=== PATIENT | female | born 1970 | race Caucasian/White ===

== ENCOUNTER 2023-07-13 22:21 | Inpatient (IN) | payer BC ==
--- NOTE | 2023-07-13 22:49 | ED ---
Arrhythmia/Palpitations HPI - General Chief Complaint: Arrhythmia/Palpitations Stated Complaint: Afib RVR Time Seen by Provider: 07/13/23 22:26 Source: patient, EMS Mode of arrival: EMS Limitations: no limitations - History of Present Illness Initial Comments: This patient is a 53-year-old woman who arrives by ambulance to have evaluation for "fluttering" feeling in her chest. The patient states she had been out having dinner tonight after celebrating Narendra's Day. She states she did drink more than she usually does. She noticed that she was feeling a fluttering in her chest. The patient's friend used an Apple Watch that said she was pr obably in atrial fibrillation. The patient states she has not had any history of this. She has no cardiac history. Patient states she does have history of hypothyroidism taking thyroid supplement. She had not been having symptoms prior to 2 hours ago. Patient denies pain, dyspnea, nausea vomiting, diaphoresis or syncope. MD Complaint: palpitations -: hour(s) Context: occurred during rest Associated Symptoms: denies other symptoms Treatments Prior to Arrival: vagal maneuvers - Related Data Home Medications Medication Instructions Recorded Confirmed Cholecalciferol [Vitamin D3 (125 125 mcg PO DAILY 07/14/23 07/14/23 Mcg = 5000 Iu)] Multivitamins, Thera [Multivitamin 1 tab PO DAILY 07/14/23 07/14/23 (formulary)] [place]-3/Dha/Epa/Fish Oil [Fish Oil 1 cap PO DAILY 07/14/23 07/14/23 1,000 mg Softgel] Previous Rx's Medication Instructions Recorded Thyroid,Pork [Nursing Technician Thyroid 120] 120 mg PO DAILY #30 tablet 07/14/23 Thyroid,Pork [Nursing Technician Thyroid] 30 mg PO DAILY #30 tablet 07/14/23 Allergies Allergy/AdvReac Type Severity Reaction Status Date / Time gabapentin [From Neurontin] Allergy Rash/Hives Verified 07/13/23 22:32 zpack AdvReac Nausea & Uncoded 07/13/23 22:32 Vomiting Review of Systems ROS Statement: Those systems with pertinent positive or pertinent negative responses have been documented in the HPI. ROS Other: All systems not noted in ROS Statement are negative. Constitutional: Denies: fever, chills Eyes: Denies: vision change Respiratory: Denies: cough, dyspnea Cardiovascular: Reports: palpitations. Denies: chest pain, orthopnea, edema, syncope Gastrointestinal: Denies: abdominal pain, nausea, vomiting, diarrhea Genitourinary: Denies: dysuria, hematuria Musculoskeletal: Denies: back pain Skin: Denies: rash Neurological: Denies: headache, weakness, numbness Past Medical History - Past Family History Father Family Medical History: Diabetes Mellitus Mother Family Medical History: COPD, Osteoarthritis (OA) General Exam General appearance: alert, in no apparent distress Head exam: Present: atraumatic, normocephalic Eye exam: Present: normal appearance. Absent: scleral icterus, conjunctival injection ENT exam: Present: normal oropharynx Neck exam: Present: normal inspection Respiratory exam: Present: normal lung sounds bilaterally. Absent: respiratory distress, wheezes, rales, rhonchi, stridor, accessory muscle use Cardiovascular Exam: Present: tachycardia, irregular rhythm, normal heart sounds. Absent: systolic murmur, diastolic murmur, rubs, gallop GI/Abdominal exam: Present: soft. Absent: distended, tenderness, guarding, rebound, rigid, mass Extremities exam: Present: normal inspection, normal capillary refill. Absent: pedal edema, calf tenderness Back exam: Present: normal inspection. Absent: CVA tenderness (R), CVA te nderness (L) Neurological exam: Present: alert Skin exam: Present: warm, dry, intact, normal color. Absent: rash Course Vital Signs 07/13/23 07/13/23 07/14/23 22:23 23:30 00:45 Temperature 98.5 F Pulse Rate 142 H 131 H 144 H Respiratory 18 18 18 Rate Blood Pressure 102/72 119/80 109/69 O2 Sat by Pulse 98 96 96 Oximetry 07/14/23 02:02 Temperature Pulse Rate 118 H Respiratory 18 Rate Blood Pressure 109/69 O2 Sat by Pulse 94 L Oximetry EKG Findings - EKG Results: EKG: normal axis EKG shows: tachycardia (Rate 144 bpm) - Dysrhythmias: Supraventricular dysrhythmia: atrial fibrillation - Blocks, Thida, Hypertrophy, ST Abn: QRS axis and voltage: low voltage (<0.5 MV total QRS and <1.0 MV in each precordial lead) Medical Decision Making - Medical Decision Making The patient had chest x-ray that I interpreted as negative for acute infiltrate, pneumothorax, congestive heart failure Was pt. sent in by a medical professional or institution (JACK Scanlon, RESEARCH COMPLIANCE SPECIALIST, urgent care, hospital, or fdc...) When possible be specific @ -[No] Did you speak to anyone other than the patient for history (EMS, parent, family, police, friend...)? What history was obtained from this source @ -[Patient's friend did contribute to history Did you review nursing and triage notes (agree or disagree)? Why? @ -[I reviewed and agree with nursing and triage notes] Were old charts reviewed (outside hosp., previous admission, EMS record, old EKG, old radiological studies, urgent care reports/EKG's, fdc records)? Report findings @ -[No old charts were reviewed] Differential Diagnosis (chest pain, altered mental status, abdominal pain women, abdominal pain men, vaginal bleeding, weakness, fever, dyspnea, syncope, headache, dizziness, GI bleed, back pain, seizure, CVA, palpatations, mental health, musculoskeletal)? @ -[Differential Palpitations Ventricular arrhythmias, atrial arrhythmias, myocardial infarction, anemia, thy rotoxicosis, electrolyte imbalance, hypokalemia, pulmonary embolism, pulmonary disease, drugs, alcohol, anxiety, stress.... This is not meant to be an all-inclusive list. EKG interpreted by me (3pts min.). @ -[I interpreted as above] X-rays interpreted by me (1pt min.). @ -[I interpreted as above CT interpreted by me (1pt min.). @ -[None done] U/S interpreted by me (1pt. min.). @ -[None done] What testing was considered but not performed or refused? (CT, X-rays, U/S, labs)? Why? @ -[None] What meds were considered but not given or refused? Why? @ -[None] Did you discuss the management of the patient with other professionals (professionals i.e. JACK Scanlon, RESEARCH COMPLIANCE SPECIALIST, lab, RT, psych nurse, social secretary, rn documentation, teacher, traffic officer, briefcase sewer)? Give summary @ -[No] Was smoking cessation discussed for >3mins.? @ -[No] Was critical care preformed (if so, how long)? @ -[S, 35 minutes Were there social determinants of health that impacted care today? How? (Homelessness, low income, unemployed, alcoholism, drug addiction, transportation, low edu. Level, literacy, decrease access to med. care, penitentiary, rehab)? @ -[No] Was there de-escalation of care discussed even if they declined (Discuss DNR or withdrawal of care, Hospice)? DNR status @ -[No] What co-morbidities impacted this encounter? (DM, HTN, Smoking, COPD, CAD, Cancer, CVA, ARF, Chemo, Hep., AIDS, mental health diagnosis, sleep apnea, morbid obesity)? @ -[None] Was patient admitted / discharged? Hospital course, mention meds given and route, prescriptions, significant lab abnormalities, going to OR and other pertinent info. @ -[Patient is a 53-year-old woman presenting with palpitations and found to be in new onset of atrial fibrillation with a rapid ventricular rate. The patient is started on fluids and Cardizem. After period of time she remains in atrial fibrillation though the rate has come down somewhat. Patient be admitted for further treatment and cardiology consultation. Undiagnosed new problem with uncertain prognosis? @ -[No] Drug Therapy requiring intensive monitoring for toxicity (Heparin, Nitro, Insulin, Cardizem)? @ -[Cardizem Were any procedures done? @ -[No] Diagnosis/symptom? @ -[New onset atrial fibrillation, with ventricular rapid rate Acute, or Chronic, or Acute on Chronic? @ -[Acute Uncomplicated (without systemic symptoms) or Complicated (systemic symptoms)? @ -[Uncomplicated Side effects of treatment? @ -[No] Exacerbation, Progression, or Severe Exacerbation? @ -[No] Poses a threat to life or bodily function? How? (Chest pain, USA, ID, pneumonia, PE, COPD, DKA, ARF, appy, cholecystitis, CVA, Diverticulitis, Homicidal, Suicidal, threat to staff... and all critical care pts) @ -[No] - Lab Data Result diagrams: 07/13/23 22:49 07/13/23 22:49 Lab Results 07/13/23 07/13/23 07/13/23 Range/Units 22:49 22:49 22:49 WBC 5.8 (3.8-10.6) k/uL RBC 5.14 (3.80-5.40) m/uL Hgb 14.2 (11.4-16.0) gm/dL Hct 43.0 (34.0-46.0) % MCV 83.6 (80.0-100.0) fL MCH 27.7 (25.0-35.0) pg MCHC 33.1 (31.0-37.0) g/dL RDW 12.2 (11.5-15.5) % Plt Count 191 (150-450) k/uL MPV 6.9 Neutrophils % 41 % Lymphocytes % 48 % Monocytes % 5 % Eosinophils % 2 % Basophils % 1 % Neutrophils # 2.4 (1.3-7.7) k/uL Lymphocytes # 2.8 (1.0-4.8) k/uL Monocytes # 0.3 (0-1.0) k/uL Eosinophils # 0.1 (0-0.7) k/uL Basophils # 0.1 (0-0.2) k/uL Sodium 142 (137-145) mmol/L Potassium 3.7 (3.5-5.1) mmol/L Chloride 109 H (98-107) mmol/L Carbon Dioxide 22 (22-30) mmol/L Anion Gap 11 mmol/L BUN 10 (7-17) mg/dL Creatinine 0.72 (0.52-1.04) mg/dL Est GFR (CKD-EPI)AfAm >90 (>60 ml/min/1.73 sqM) Est GFR (CKD-EPI)NonAf >90 (>60 ml/min/1.73 sqM) Glucose 96 (74-99) mg/dL Calcium 9.1 (8.4-10.2) mg/dL Magnesium 1.7 (1.6-2.3) mg/dL Total Bilirubin 0.3 (0.2-1.3) mg/dL AST 25 (14-36) U/L ALT 20 (4-34) U/L Alkaline Phosphatase 92 (38-126) U/L Troponin I <0.012 (0.000-0.034) ng/mL Total Protein 6.9 (6.3-8.2) g/dL Albumin 4.5 (3.5-5.0) g/dL TSH <0.015 L (0.465-4.680) mIU/L Critical Care Time Critical Care Time: Yes (35 minutes) Disposition Clinical Impression: Atrial fibrillation with rapid ventricular response Disposition: ADMITTED IP TO THIS HOSP Condition: Stable
[2023-07-13] MEDS: SODIUM CHLORIDE 0.9% 1,000 ML IV STA ×2 (22:50→22:59)
[2023-07-13] MEDS: DILTIAZEM 125 MG in SODIUM CHLORIDE 0.9% 100 ML IV SCH (22:52)
[2023-07-13] MEDS: DILTIAZEM DRIP BOLUS FROM BAG 1 MG SOLN IV ONE ×2 (22:56→23:44)
[2023-07-13] MEDS: ASPIRIN 81 MG PO STA (22:58)
[2023-07-13 23:00] LABS: Basophils # (A) 0.1 k/uL (0-0.2); Basophils % (A) 1 %; Eosinophils # (A) 0.1 k/uL (0-0.7); Eosinophils % (A) 2 %; HGB 14.2 gm/dL (11.4-16.0); Lymphocytes # (A) 2.8 k/uL (1.0-4.8); Lymphocytes % (A) 48 %; MCH 27.7 pg (25.0-35.0); MCHC 33.1 g/dL (31.0-37.0); MCV 83.6 fL (80.0-100.0); Mean Platelet Volume 6.9; Monocytes # (A) 0.3 k/uL (0-1.0); Monocytes % (A) 5 %; Neutrophils # (A) 2.4 k/uL (1.3-7.7); Neutrophils % (A) 41 %; Platelet Count 191 k/uL (150-450); RBC 5.14 m/uL (3.80-5.40); RDW 12.2 % (11.5-15.5); WBC 5.8 k/uL (3.8-10.6)
[2023-07-13 23:08] LABS: ALT 20 U/L (4-34); AST 25 U/L (14-36); African American GFR (CKD) >90 (>60 ml/min/1.73 sqM); Albumin 4.5 g/dL (3.5-5.0); Alkaline Phosphatase 92 U/L (38-126); Anion Gap 11 mmol/L; Blood Urea Nitrogen 10 mg/dL (7-17); Calcium 9.1 mg/dL (8.4-10.2); Carbon Dioxide 22 mmol/L (22-30); Chloride 109 mmol/L (98-107); Glucose 96 mg/dL (74-99); Magnesium 1.7 mg/dL (1.6-2.3); Non-African American GFR(CKD) >90 (>60 ml/min/1.73 sqM); Potassium 3.7 mmol/L (3.5-5.1); Sodium 142 mmol/L (137-145); Total Bilirubin 0.3 mg/dL (0.2-1.3); Total Protein 6.9 g/dL (6.3-8.2)
[2023-07-13] MEDS: SODIUM CHLORIDE 0.9% 500 ML 500 ML IV STA (23:44)
[2023-07-14] MEDS: LORazepam 2 MG/ML INJ IV STA (00:58)
[2023-07-14] MEDS ORDERED: NITROGLYCERIN SL TABS 0.4 MG TAB SUBLINGUAL PRN (01:39)
[2023-07-14] MEDS: DILTIAZEM DRIP BOLUS FROM BAG 1 MG SOLN IV ONE (01:43)
--- NOTE | 2023-07-14 02:02 | XR ---
EXAM: XR Chest, 2 Views CLINICAL HISTORY: ITS.REASON XR Reason: dysrhythmia TECHNIQUE: Frontal and lateral views of the chest. COMPARISON: No relevant prior studies available. FINDINGS: Lungs: No consolidation or mass. Pleural space: No effusion. Heart: No cardiomegaly. Bones/joints: No acute findings. IMPRESSION: No acute cardiopulmonary process.
[2023-07-14] MEDS: ENOXAPARIN 80 MG/0.8 ML SYRINGE SQ SCH (02:25)
[2023-07-14 07:49] VITALS: TEMP 98.3
--- NOTE | 2023-07-14 10:07 | P.CRDCN ---
History of Present Illness Consult date: 07/14/23 History of present illness: History of Present Illness: The patient is a 53-year-old female with no prior cardiac history who presented yesterday with symptoms of palpitations. The patient is visiting from [facility], had more alcohol intake than usual yesterday and then felt palpitations not associated with dizziness, chest discomfort or significant dyspnea. She borr owed the Apple Watch from her friend and was in atrial fibrillation. She is back in sinus mechanism at this time. She has occasional palpitations on and off at home that are related to her history of thyroid disease. She is active physically without exertional chest discomfort, dyspnea or palpitations. She has no PND, orthopnea or peripheral edema. She continues to be in sinus mechanism. Her troponin is normal. Her [id number] score is 1 Medications: Synthroid and weekly injection for weight loss by her PCP [facility] Review of Systems: Respiratory: No history of asthma, bronchitis or recent cough. GI: No nausea or vomiting . No history of peptic ulcer disease. No recent GI bleed. : No hematuria or dysuria. Nervous System: No stroke or seizure. Physical Examination: 53-year-old female, alert oriented no apparent distress,Blood pressure 105/60, Heart rate 89 Head: Normocephalic. Eyes: Sclerae nonicteric. Neck: Good carotid upstroke, no bruit, no jugular venous distention. Lungs: Clear to auscultation. Heart: Regular rate and rhythm, S1-S2, no S3, no rub. No murmur. Abdomen: Soft nontender, positive bowel sounds no organomegaly. Extremities: No edema, intact distal pulses. Labs: Hemoglobin 14.2, potassium 3.7, BUN 10, creatinine 0.72. Troponin less than 0.012. TSH less than 0.015. Chest x-ray with no acute infiltrate EKG: Initial EKG shows atrial fibrillation with rapid ventricular response at rate of 144 subsequently sinus mechanism rate of 90, first-degree AV block Impression: 1. Paroxysmal atrial fibrillation, probably exacerbated by the alcohol intake yesterday 2. History of thyroid disease with hypothyroidism on the lab data Plan: 1. Increase physical activity 2. No indication for anticoagulation, score is 1 3. Patient can be discharged home today to follow-up with her primary care physician [facility] soon regarding her thyroid function test and the need to undergo further cardiac workup 4. I discussed this finding with the patient 5. Thank you for this consult we will follow with you Past Medical History Past Medical History: Thyroid Disorder Additional Past Medical History / Comment(s): Pt states shes in a clinical weight loss study, does not know the name of the medication beinig given History of Any Multi-Drug Resistant Organisms: None Reported Past Surgical History: Section Additional Past Surgical History / Comment(s): rotator cuff surgery Past Anesthesia/Blood Transfusion Reactions: No Reported Reaction Past Psychological History: No Psychological Hx Reported Smoking Status: Former smoker Past Alcohol Use History: Rare Past Drug Use History: None Reported - Past Family History Father Family Medical History: Diabetes Mellitus Mother Family Medical History: COPD, Osteoarthritis (OA) Medications and Allergies Allergies Allergy/AdvReac Type Severity Reaction Status Date / Time gabapentin [From Neurontin] Allergy Rash/Hives Verified 07/13/23 22:32 zpack AdvReac Nausea & Uncoded 07/13/23 22:32 Vomiting Physical Exam Vitals: Vital Signs Temp Pulse Pulse Resp BP BP Pulse Ox 07/14/23 07:38 98.3 F 89 15 105/65 96 07/14/23 06:00 88 18 97/60 96 07/14/23 02:25 98.1 F 113 H 18 114/71 97 07/14/23 02:02 118 H 18 109/69 94 L 07/14/23 00:45 144 H 18 109/69 96 07/13/23 23:30 131 H 18 119/80 96 07/13/23 22:23 98.5 F 142 H 18 102/72 98 Intake and Output 07/13/23 07/14/23 07/14/23 22:59 06:59 14:59 Intake Total 9.833 Balance 9.833 Intake: Intake, IV Titration 9.833 Amount Diltiazem 125 mg In 9.833 Sodium Chloride 0.9% 100 ml @ 5 MG/HR 5 mls/hr IV .Q24H COUNTS INCLUDE 234 BEDS AT THE [facility] Rx#:[id number] Other: Voiding Method Toilet # Voids 1 Weight 83.915 kg 83.915 kg Results 07/13/23 22:49 07/13/23 22:49 Cardiac Enzymes 07/13/23 07/13/23 07/14/23 Range/Units 22:49 22:49 02:17 AST 25 (14-36) U/L Troponin I <0.012 <0.012 (0.000-0.034) ng/mL 07/14/23 Range/Units 07:34 AST (14-36) U/L Troponin I <0.012 (0.000-0.034) ng/mL CBC 07/13/23 Range/Units 22:49 WBC 5.8 (3.8-10.6) k/uL RBC 5.14 (3.80-5.40) m/uL Hgb 14.2 (11.4-16.0) gm/dL Hct 43.0 (34.0-46.0) % Plt Count 191 (150-450) k/uL Comprehensive Metabolic Panel 07/13/23 Range/Units 22:49 Sodium 142 (137-145) mmol/L Potassium 3.7 (3.5-5.1) mmol/L Chloride 109 H (98-107) mmol/L Carbon Dioxide 22 (22-30) mmol/L BUN 10 (7-17) mg/dL Creatinine 0.72 (0.52-1.04) mg/dL Glucose 96 (74-99) mg/dL Calcium 9.1 (8.4-10.2) mg/dL AST 25 (14-36) U/L ALT 20 (4-34) U/L Alkaline Phosphatase 92 (38-126) U/L Total Protein 6.9 (6.3-8.2) g/dL Albumin 4.5 (3.5-5.0) g/dL Current Medications Generic Name Dose Route Start Last Admin Trade Name Freq PRN Reason Stop Dose Admin Aspirin 325 mg 07/15/23 09:00 Aspirin 325 Mg Tab PO DAILY JOCELYN Enoxaparin Sodium 80 mg 07/14/23 02:00 07/14/23 02:25 Enoxaparin 80 Mg/0.8 Ml Syringe SQ 80 mg Q12H JOCELYN Administration Sodium Chloride 1,000 mls @ 75 mls/hr 07/13/23 22:41 07/13/23 22:59 Saline 0.9% IV 07/14/23 12:00 75 mls/hr .[id number] STA Administration Nitroglycerin 0.4 mg 07/14/23 01:39 Nitroglycerin Sl Tabs 0.4 Mg Tab SUBLINGUAL Q5M PRN Chest Pain Intake and Output 07/13/23 07/14/23 07/14/23 22:59 06:59 14:59 Intake Total 9.833 Balance 9.833 Intake: Intake, IV Titration 9.833 Amount Diltiazem 125 mg In 9.833 Sodium Chloride 0.9% 100 ml @ 5 MG/HR 5 mls/hr IV .Q24H COUNTS INCLUDE 234 BEDS AT THE [facility] Rx#:[id number] Other: Voiding Method Toilet # Voids 1 Weight 83.915 kg 83.915 kg 07/13/23 22:49 07/13/23 22:49
[2023-07-14] MEDS: SIMETHICONE 80 MG CHEWABLE PO SCH (12:13)
[2023-07-14 12:17] VITALS: BP 115/76; PULSE 80; RESP 17
--- NOTE | 2023-07-14 13:30 | P.HPIM ---
History of Present Illness H&P Date: 07/14/23 This is a pleasant 53-year-old female with medical history significant for hypothyroidism with occasional heart palpitations and currently undergoing a clinical trial with a weight loss medication. She is unsure what it is but states that it is similar to Jeyfatmatayariel shanae Ortega. She states that she has been on this since March 2022 and has 1 more injection. Patient is maintained on WINDOWS [employer] ADMINISTRATOR thyroid medication at 180 mg daily for history of hypothyroidism. She comes in with concern for palpitations and was found to be in atrial fibrillation with rapid ventricular rate. She is denying any headache denying any dizziness or lightheadedness denying any chest pain or chest discomfort she is not having any shortness of breath. She is not having any symptoms with exertion. Her [id number]- VASc score is 1. She has converted back to sinus mechanism and was cleared by cardiology for further evaluation outpatient once she returns home up [place]. Patient did have a TSH level of less than 0.015. Her troponin level was negative x 3. We did check a free T4 which is currently pending at this time however due to the atrial fibrillation with history of palpitations we would recommend to decrease her thyroid medication to 150 mg daily and this is discussed with the patient and she is in agreements of this. REVIEW OF SYSTEMS: CONSTITUTIONAL: No fever, no malaise, no fatigue. HEENT: No recent visual problems or hearing problems. Denied any sore throat. CARDIOVASCULAR: No chest pain, orthopnea, PND, no palpitations, no syncope. PULMONARY: No shortness of breath, no cough, no hemoptysis. GASTROINTESTINAL: No diarrhea, no nausea, no vomiting, no abdominal pain. NEUROLOGICAL: No headaches, no weakness, no numbness. HEMATOLOGICAL: Denies any bleeding or petechiae. GENITOURINARY: Denies any burning micturition, frequency, or urgency. MUSCULOSKELETAL/RHEUMATOLOGICAL: Denies any joint pain, swelling, or any muscle pain. ENDOCRINE: Denies any polyuria or polydipsia. The rest of the 14-point review of systems is negative. PHYSICAL EXAMINATION: GENERAL: The patient is alert and oriented x3, not in any acute distress. Well developed, well nourished. HEENT: Pupils are round and equally reacting to light. EOMI. No scleral icterus. No conjunctival pallor. Normocephalic, atraumatic. No pharyngeal erythema. No thyromegaly. CARDIOVASCULAR: S1 and S2 present. No murmurs, rubs, or gallops. PULMONARY: Chest is clear to auscultation, no wheezing or crackles. ABDOMEN: Soft, nontender, nondistended, normoactive bowel sounds. No palpable organomegaly. MUSCULOSKELETAL: No joint swelling or deformity. EXTREMITIES: No cyanosis, clubbing, or pedal edema. NEUROLOGICAL: Gross neurological examination did not reveal any focal deficits. SKIN: No rashes. Assessment and Plan Paroxysmal atrial fibrillation could be due to her thyroid disorder or likely exacerbated by alcohol intake based on patient's risk score she would not require any anticoagulation on discharge. History of hypothyroidism pain on supplementation outpatient we would recommend to decrease the dosing and repeat labs outpatient Former smoker GI prophylaxis Full code Is medically stable for discharge home with above-mentioned recommendations and follow-up. The impression and plan of care has been dictated by Latasha Powell Nurse Practitioner as directed. Dr. Gurdeep MD I have performed a history and physical examination and medical decision making of this patient, discussed the same with the dictator, and agree with the dictators assessment and plan as written, documented as a scribe. Based on total visit time, I have performed more than 50% of this visit. Past Medical History Past Medical History: Thyroid Disorder Additional Past Medical History / Comment(s): Pt states shes in a clinical weight loss study, does not know the name of the medication beinig given History of Any Multi-Drug Resistant Organisms: None Reported Past Surgical History: Section Additional Past Surgical History / Comment(s): rotator cuff surgery Past Anesthesia/Blood Transfusion Reactions: No Reported Reaction Past Psychological History: No Psychological Hx Reported Smoking Status: Former smoker Past Alcohol Use History: Rare Past Drug Use History: None Reported - Past Family History Father Family Medical History: Diabetes Mellitus Mother Family Medical History: COPD, Osteoarthritis (OA) Medications and Allergies Home Medications Medication Instructions Recorded Confirmed Type Cholecalciferol [Vitamin D3 (125 125 mcg PO DAILY 07/14/23 07/14/23 History Mcg = 5000 Iu)] Multivitamins, Thera [Multivitamin 1 tab PO DAILY 07/14/23 07/14/23 History (formulary)] [place]-3/Dha/Epa/Fish Oil [Fish Oil 1 cap PO DAILY 07/14/23 07/14/23 History 1,000 mg Softgel] Thyroid,Pork [Cathead Operator Thyroid 120] 120 mg PO DAILY #30 tablet 07/14/23 Rx Thyroid,Pork [Cathead Operator Thyroid] 30 mg PO DAILY #30 tablet 07/14/23 Rx Allergies Allergy/AdvReac Type Severity Reaction Status Date / Time gabapentin [From Neurontin] Allergy Rash/Hives Verified 07/13/23 22:32 zpack AdvReac Nausea & Uncoded 07/13/23 22:32 Vomiting Physical Exam Vitals: Vital Signs Temp Pulse Pulse Resp BP BP Pulse Ox 07/14/23 07:38 98.3 F 89 15 105/65 96 07/14/23 06:00 88 18 97/60 96 07/14/23 02:25 98.1 F 113 H 18 114/71 97 07/14/23 02:02 118 H 18 109/69 94 L 07/14/23 00:45 144 H 18 109/69 96 07/13/23 23:30 131 H 18 119/80 96 07/13/23 22:23 98.5 F 142 H 18 102/72 98 Intake and Output 07/13/23 07/14/23 07/14/23 22:59 06:59 14:59 Intake Total 9.833 Balance 9.833 Intake: Intake, IV Titration 9.833 Amount Diltiazem 125 mg In 9.833 Sodium Chloride 0.9% 100 ml @ 5 MG/HR 5 mls/hr IV .Q24H [facility] Rx#:[id number] Other: Voiding Method Toilet # Voids 1 Weight 83.915 kg 83.915 kg Results CBC & Chem 7: 07/13/23 22:49 07/13/23 22:49 Labs: Abnormal Lab Results - Last 24 Hours (Table) 07/13/23 Range/Units 22:49 Chloride 109 H (98-107) mmol/L TSH <0.015 L (0.465-4.680) mIU/L Thrombosis Risk Factor Assmnt - Choose All That Apply Any of the Below Risk Factors Present?: Yes Each Factor Represents 1 point: Age 41-60 years, Obesity (BMI >25) Other Risk Factors: No Other congenital or acquired thrombophilia - If yes, enter type in comment: No Thrombosis Risk Factor Assessment Total Risk Factor Score: 2 Thrombosis Risk Factor Assessment Level: Low Risk Assessment and Plan Time with Patient: Greater than 30
[2023-07-15] MEDS ORDERED: ASPIRIN 325 MG TAB PO SCH (09:00)
--- NOTE | 2023-07-16 22:57 | P.DS ---
Providers Date of admission: 07/14/23 01:42 Attending physician: Regine Tamez Consults: 07/14/23 01:40 Consult Physician Urgent Consulting Provider: Eliot Loving Consult Reason/Comments: Atrial fibrillation with rapid ventricular rate Do you want consulting provider notified?: Yes Primary care physician: Stated None Hospital Course: Final Diagnosis Paroxysmal atrial fibrillation could be due to her thyroid disorder or likely exacerbated by alcohol intake based on patient's risk score she would not require any anticoagulation on discharge. History of hypothyroidism pain on supplementation outpatient we would recommend to decrease the dosing and repeat labs outpatient Former smoker Discharge Disposition Patient is stable for discharge home. Patient to return to [facility] will Follow up with PCP Dr. Marti Nair in 1 to 2 days. Recommend to establish care with a grain unloader. Recommend to decreased thyroid supplement to 150 mg daily. Based on patient's risk score she would not require any anticoagulation on discharge. Hospital Course This is a pleasant 53-year-old female with medical history significant for hypothyroidism with occasional heart palpitations and currently undergoing a clinical trial with a weight loss medication. She is unsure what it is but states that it is similar to Celina and [place]. She states that she has been on this since March 2022 and has 1 more injection. Patient is maintained on [employer] thyroid medication at 180 mg daily for history of hypothyroidism. She comes in with concern for palpitations and was found to be in atrial fibrillation with rapid ventricular rate. She is denying any headache denying any dizziness or lightheadedness denying any chest pain or chest discomfort she is not having any shortness of breath. She is not having any symptoms with exertion. Her CYM2PR0- VASc score is 1. She has converted back to sinus mechanism and was cleared by cardiology for further evaluation outpatient once she returns home [place]. Patient did have a TSH level of less than 0.015. Her troponin level was negative x 3. We did check a free T4 which is currently pending at this time however due to the atrial fibrillation with history of palpitations we would recommend to decrease her thyroid medication to 150 mg daily and this is discussed with the patient and she is in agreements of this. Please see medication reconciliation for a list of current medications. Thank you for allowing us to participate in the care of this patient. The impression and plan of care has been dictated by Latasha Powell, Nurse Practitioner as directed. Dr. Gurdeep MD I have performed a history and physical examination and medical decision making of this patient, discussed the same with the dictator, and agree with the dictators assessment and plan as written, documented as a scribe. Based on total visit time, I have performed more than 50% of this visit. Patient Condition at Discharge: Stable Plan - Discharge Summary Discharge Rx Participant: No New Discharge Prescriptions: New Thyroid,Pork [Him Analyst Thyroid 120] 120 mg PO DAILY #30 tablet Thyroid,Pork [Him Analyst Thyroid] 30 mg PO DAILY #30 tablet Continue Multivitamins, Thera [Multivitamin (formulary)] 1 tab PO DAILY [place]-3/Dha/Epa/Fish Oil [Fish Oil 1,000 mg Softgel] 1 cap PO DAILY Cholecalciferol [Vitamin D3 (125 Mcg = 5000 Iu)] 125 mcg PO DAILY Discontinued Thyroid,Pork [Him Analyst Thyroid] 180 mg PO [id number] Discharge Medication List Cholecalciferol [Vitamin D3 (125 Mcg = 5000 Iu)] 125 mcg PO DAILY 07/14/23 [History] Multivitamins, Thera [Multivitamin (formulary)] 1 tab PO DAILY 07/14/23 [History] [place]-3/Dha/Epa/Fish Oil [Fish Oil 1,000 mg Softgel] 1 cap PO DAILY 07/14/23 [History] Thyroid,Pork [Him Analyst Thyroid 120] 120 mg PO DAILY #30 tablet 07/14/23 [Rx] Thyroid,Pork [Him Analyst Thyroid] 30 mg PO DAILY #30 tablet 07/14/23 [Rx] Follow up Appointment(s)/Referral(s): None,Stated [Primary Care Provider] - 1-2 days Patient Instructions/Handouts: A-fib (Atrial Fibrillation) (DC) Activity/Diet/Wound Care/Special Instructions: Follow up with your PCP Dr. Marti Nair in 1 to 2 days. Recommend to establish care with a grain unloader. Recommend to decreased thyroid supplement to 150 mg daily. Discharge Disposition: HOME SELF-CARE
== END 2023-07-14 13:25 | disposition home or self-care (01) | DRG 309 ==
LOC: EC 22:21 → 3SCARD 07-14 01:42
PROVIDERS: ADMIT Hospitalist; ATTEND Hospitalist
DX: I48.0 Paroxysmal atrial fibrillation (principal); Z00.6 Encounter for examination for normal comparison and control in clinical research program; F10.988 Alcohol use, unspecified with other alcohol-induced disorder; E03.9 Hypothyroidism, unspecified; Z87.891 Personal history of nicotine dependence; Z88.5 Allergy status to narcotic agent; Z88.1 Allergy status to other antibiotic agents; Z79.890 Hormone replacement therapy; Z79.899 Other long term (current) drug therapy
CPT/HCPCS: 36415; 71046; 80053; 83735; 84436; 84443; 84484; 85025; 93005; 96365; 96366; 96375; 99291